=== PATIENT | female | born 1980 | race African-American/Black ===

== ENCOUNTER 2017-03-18 17:36 | Emergency (ER) | payer MEDICAID, OTHER ==
[~2017-03-18] VITALS: Ht 165.1 cm; Wt 79.0 kg
[~2017-03-18 17:36] MED LIST: IRON; MOTRI; MULT-348; [UNRECOGNIZED DRUG - SUPPLY]
[2017-03-18] MEDS ORDERED: SODIUM CHLORIDE 0.9% 1,000 ML IV ONE (19:07)
[2017-03-18] MEDS ORDERED: ONDANSETRON HCL 4MG/2ML VIAL IV STA (19:07)
[2017-03-18] MEDS ORDERED: PANTOPRAZOLE SODIUM 40 MG/VIAL IV ONE (19:15)
[2017-03-18] MEDS ORDERED: STERILE WATER FOR INJECTION 10ML VIAL ONE (19:54)
[2017-03-18 20:02] LABS: BASOPHILS % 0.2 % (0.0-2.0); EOSINOPHILS % 0.8 % (0.0-5.0); HEMATOCRIT. 37.2 % (36.0-48.0); HEMOGLOBIN. 12.4 g/dL (12.0-16.0); LYMPHOCYTES % 11.7 % (20.0-50.0); MEAN CORPUSCULAR HEMOGLOBIN 30.8 pg (28.0-32.0); MEAN CORPUSCULAR VOLUME 92.9 fL (81.0-99.0); MEAN PLATELET VOLUME 9.3 fl (7.4-10.4); MONOCYTES % 2.9 % (2.0-8.0); NEUTROPHILS % 84.4 % (40.0-76.0); PLATELET 227 x1000/uL (130-400); RED BLOOD CELL COUNT 4.01 mill/uL (4.2-5.4); RED CELL DISTRIBUTION WIDTH 13.8 % (11.6-14.6)
[2017-03-18 20:05] LABS: CHLORIDE 103 mEq/L (98-107)
[2017-03-18 20:06] LABS: PROTHROMBIN TIME 10.7 sec (9.4-11.6)
[2017-03-18 20:09] LABS: CLARITY URINE CLOUDY (CLEAR); COLOR URINE DARK YELLOW (YELLOW); KETONES URINE 1+ (NEGATIVE); LEUKOCYTE ESTERASE URINE NEGATIVE (NEGATIVE); NITRITE URINE NEGATIVE (NEGATIVE); OCCULT BLOOD URINE 3+ (NEGATIVE); PH URINE 5.5 (4.5-8.0); PROTEIN URINE 2+ (NEGATIVE); SPECIFIC GRAVITY URINE 1.036 (1.005-1.030)
[2017-03-18 20:15] LABS: CARBON DIOXIDE 30 mEq/L (21-32)
[2017-03-18 20:47] VITALS: BP 117/72
== END 2017-03-18 21:10 | disposition home or self-care (01) ==
LOC: ER 18:04
DX: R10.9 Unspecified abdominal pain (principal); R11.2 Nausea with vomiting, unspecified; R19.7 Diarrhea, unspecified; Z88.2 Allergy status to sulfonamides
CPT/HCPCS: 36415; 80053; 81001; 81025; 85025; 85610; 96361; 96374; 96375; 99284; A4216; C9113; J2405; J7030; Z7610

== ENCOUNTER 2017-12-26 01:56 | Emergency (ER) | payer SELFPAY ==
[~2017-12-26] VITALS: Ht 165.1 cm; Wt 84.0 kg
[2017-12-26 05:15] LABS: CLARITY URINE CLEAR (CLEAR); COLOR URINE YELLOW (YELLOW); KETONES URINE NEGATIVE (NEGATIVE); LEUKOCYTE ESTERASE URINE 3+ (NEGATIVE); NITRITE URINE NEGATIVE (NEGATIVE); OCCULT BLOOD URINE 2+ (NEGATIVE); PROTEIN URINE 1+ (NEGATIVE); SPECIFIC GRAVITY URINE 1.018 (1.005-1.030); UROBILINOGEN URINE 0.2 E.U./dL (0.2-1.0)
[2017-12-26 06:11] VITALS: BP 129/84
== END 2017-12-26 06:13 | disposition home or self-care (01) ==
LOC: ER 01:56
DX: B37.3 Candidiasis of vulva and vagina (principal); N39.0 Urinary tract infection, site not specified; Z88.2 Allergy status to sulfonamides; Z79.899 Other long term (current) drug therapy
CPT/HCPCS: 81003; 81025; 87086; 87106; 99284; Z7610

== ENCOUNTER 2018-11-24 20:05 | Emergency (ER) | payer SELFPAY ==
[~2018-11-24] VITALS: Ht 165.1 cm; Wt 82.7 kg
[2018-11-24 23:25] VITALS: BP 123/84
== END 2018-11-24 23:31 | disposition home or self-care (01) ==
LOC: ER 20:05
DX: F41.9 Anxiety disorder, unspecified (principal); Z88.2 Allergy status to sulfonamides; Z98.890 Other specified postprocedural states
CPT/HCPCS: 81025; 82962; 93005; 99284

== ENCOUNTER 2020-11-25 12:21 | Emergency (ER) | payer MEDICAID, OTHER ==
[~2020-11-25] VITALS: Ht 167.6 cm; Wt 79.0 kg
[2020-11-25] MEDS ORDERED: ACETAMINOPHEN 500MG TABLET PO ONE (14:30)
[2020-11-25] MEDS ORDERED: AMOX-424 MT (15:27)
[2020-11-25 15:58] VITALS: BP 121/76
[2020-11-25] MEDS ORDERED: IBUP-2029 MT (16:27)
[2020-11-25] MEDS ORDERED: ACET-2708 MT (16:27)
== END 2020-11-25 16:35 | disposition home or self-care (01) ==
LOC: ER 12:21
DX: U07.1 COVID-19 (principal); R50.9 Fever, unspecified; F41.9 Anxiety disorder, unspecified; Z98.890 Other specified postprocedural states; Z88.2 Allergy status to sulfonamides
CPT/HCPCS: 81025; 87426; 99283

== ENCOUNTER 2024-04-22 12:44 | Emergency (ER) | payer OTHER ==
[~2024-04-22] VITALS: Ht 165.1 cm; Wt 77.0 kg
[~2024-04-22 12:44] MED LIST changes: +ACET-2708 MT; +AMOX-424 MT; +IBUP-2029 MT
[2024-04-22 12:53] VITALS: O2SAT 100
[2024-04-22 12:55] VITALS: TEMP 98.6; O2SAT 100
[2024-04-22] MEDS ORDERED: AMOX1TAB16 MT (14:47)
[2024-04-22] MEDS ORDERED: IBUP-2029 MT (14:48)
[2024-04-22] MEDS: HYDROCODONE/ACETAMINOPHEN 10/325MG TABLET PO ONE (15:20)
[2024-04-22 15:21] VITALS: BP 122/77; PULSE 83; RESP 18
[2024-04-22] MEDS: AMOXICILLIN/POTASSIUM CLAVULANATE 875/125MG TAB PO ONE (15:21)
[2024-04-22] MEDS: IBUPROFEN 600MG TABLET PO ONE (15:21)
== END 2024-04-22 15:25 | disposition home or self-care (01) ==
LOC: ER 12:44
DX: K04.7 Periapical abscess without sinus (principal); K02.9 Dental caries, unspecified; F41.9 Anxiety disorder, unspecified; Z88.2 Allergy status to sulfonamides; Z98.890 Other specified postprocedural states; Z79.899 Other long term (current) drug therapy
CPT/HCPCS: 99283

== ENCOUNTER 2024-10-26 16:51 | Emergency (ER) | payer OTHER ==
[~2024-10-26] VITALS: Ht 165.1 cm; Wt 79.0 kg
[~2024-10-26 16:51] MED LIST changes: +AMOX1TAB16 MT
[2024-10-26 17:06] VITALS: O2SAT 100
[2024-10-26] MEDS ORDERED: CHLO473M2 MT (20:45)
[2024-10-26 21:25] VITALS: BP 140/180; PULSE 68; RESP 14; TEMP 36.7; O2SAT 100
== END 2024-10-26 21:25 | disposition home or self-care (01) ==
LOC: ER 16:51
DX: K14.0 Glossitis (principal); K14.3 Hypertrophy of tongue papillae; F41.9 Anxiety disorder, unspecified; G43.909 Migraine, unspecified, not intractable, without status migrainosus; Z79.899 Other long term (current) drug therapy; Z88.2 Allergy status to sulfonamides
CPT/HCPCS: 87070; 87430; 99283